=== PATIENT | female | born 1970 | race Caucasian/White ===

== ENCOUNTER 2016-08-30 16:21 | Emergency (ER) | payer OTHER ==
[~2016-08-30] VITALS: Ht 157.5 cm; Wt 77.4 kg
[~2016-08-30 16:21] MED LIST: CIPR-255 PO; DOCU-94 PO; ERGO1CAP35 PO; MCRB100HP PO; MTR/600 PO; OXYC-643 PO; TRIA1SPR2 NAE
[2016-08-30 16:23] VITALS: TEMP 36.6; Ht 157.5 cm; Wt 77.4 kg
[2016-08-30] MEDS ORDERED: ONDANSETRON INJ 2 MG/ML 2 ML VIAL IV STA (17:28)
[2016-08-30] MEDS ORDERED: SODIUM CHLORIDE 0.9% 1000ML 1,000 ML IV STA (17:28)
--- NOTE | 2016-08-30 17:31 | EMERGENCY ROOM VISIT NOTE ---
History Report prepared by Reid: Chloé Way Under the Supervision of: Dr. Tae Astudillo D.O. 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 The patient rates the pain as a 4/10 in severity. The patient states that she has been experiencing chills, fatigue, dizziness, lightheadedness and constant ear pain associated with her symptoms. The patient states that she has not had any fevers, sore throat, chest pain, nausea or vomiting. The patient states that Advil has decreased her pain. She states she has history of tubes in her ears along with ear infections. 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 Review of Systems See HPI for pertinent positives & negatives. A total of 10 systems reviewed and were otherwise negative. Past Medical & Surgical Medical Problems: (1) CHOLELITHIASIS NOS (2) Cough (3) Headache (4) Pneumonia (5) Right flank pain (6) Right flank pain Surgical Problems: (1) S/P cholecystectomy Family History Cancer Diabetes mellitus Gallbladder disease Heart disease Hypertension Kidney disease Lung disease Social History Smoking Status: Never Smoker Alcohol Use: none Drug Use: none Marital Status: Housing Status: lives with family Occupation Status: employed Current/Historical Medications Scheduled Amoxicillin & Pot Clavulanate (Augmentin 875-125 mg), 875 MG PO BID Ergocalciferol (Vitamin D Cap), 50,000 INTER.UNIT PO WK Scheduled PRN Ibuprofen (Ibuprofen), 600 MG PO Q6 PRN for Pain Triamcinolone Acetonide (Nasal (Nasacort-Aq Nasal Inh), 2 SPRAYS SHADI DAILY PRN for allergy symptoms Allergies Coded Allergies: Sulfamethoxazole w/Trimethoprim (Verified Allergy, Mild, UNKNOWN REACTION , 08/30/16) Meperidine (Verified Adverse Reaction, Mild, VOMITING, 08/30/16) Physical Exam Vital Signs Date Time Temp Pulse Resp B/P Pulse Ox O2 Delivery O2 Flow Rate FiO2 08/30/16 19:41 86 18 120/82 95 08/30/16 18:32 80 18 114/80 99 Room Air 08/30/16 16:23 36.6 97 18 137/86 99 Room Air Physical Exam GENERAL: Patient is awake, alert, and in no acute distress. Patient is resting comfortably and showing no signs of anxiety EYES: The conjunctivae are clear. The pupils are round and reactive. EARS, NOSE, MOUTH AND THROAT: The nose is without any evidence of any deformity. Mucous membranes are moist tongue is midline. Left TM clear, Right TM was pearly in appearance, there was a myringotomy tube located at 3 o'clock with no drainage. No swelling or erythema noted in the outer ear canal. There was tenderness with movement of the outer ear. There was mild tenderness over the right mastoid but no erythema or swelling. NECK: No midline tenderness, no meningismus, and ROM appeared to be intact. Some tenderness over the right perivertebral musculature in the cerebral spine. RESPIRATORY: Normal respiratory effort is noted there is no evidence of wheezing rhonchi or rales CARDIOVASCULAR: Regular rate and rhythm noted there no murmurs rubs or gallops normal S1 normal S2 GASTROINTESTINAL: The abdomen is soft. Bowel sounds are present in all quadrants. Abdomen is nontender MUSCULOSKELETAL/EXTREMITIES: There is no evidence of gross deformity full range of motion is noted in the hips and shoulders SKIN: There is no obvious evidence of any rash. There are no petechiae, pallor or cyanosis noted. NEUROLOGIC: Patient is awake alert and oriented x3 strength is symmetric patellar reflexes are 2+ bilaterally Medical Decision & Procedures ER Provider Diagnostic Interpretation: X-ray results as stated below per interpretation by me and the radiologist. CHEST ONE VIEW PORTABLE CLINICAL HISTORY: Neck pain. Syncope. COMPARISON STUDY: Chest radiograph and chest CT April 19, 2015. FINDINGS: Lung volumes are normal. Lungs are clear. There is no pneumothorax or pleural effusion. Cardiac size is normal. Mediastinal contours are normal. There is no evidence of pulmonary edema. IMPRESSION: No acute cardiopulmonary findings. Electronically signed by: Jone Salazar M.D. 08/30/2016 6:24 PM Dictated Date/Time: 08/30/2016 6:[address] results as stated below per my review and radiologist interpretation. CT OF THE HEAD WITHOUT CONTRAST CLINICAL HISTORY: Head and neck pain, right mastoid infection history COMPARISON STUDY: MRI of the brain November 07, 2014. CT DOSE: 893.07 mGy.cm TECHNIQUE: Helical axial images of the head were obtained without IV contrast. Automated exposure control was utilized for the study. FINDINGS: No acute intracranial hemorrhage, midline shift or mass effect is present. Ventricular system is normal. The basilar cisterns are patent. There are no extra-axial collections. Dixon-white differentiation is maintained. There are no findings to suggest acute dural sinus thrombosis or acute territorial infarct. There is no calvarial fracture. There are postsurgical findings within the sinuses. Visualized portions of the sinuses are clear. There is no fluid within the middle ears. IMPRESSION: No acute intracranial findings. Electronically signed by: Jone Salazar M.D. 08/30/2016 6:53 PM Dictated Date/Time: 08/30/2016 6:[address] OF THE CERVICAL SPINE WITHOUT CONTRAST CLINICAL HISTORY: Head and neck pain. COMPARISON STUDY: No previous studies for comparison. TECHNIQUE: Helical axial images of the cervical spine were obtained without IV contrast. Sagittal and coronal reconstructions were viewed. FINDINGS: There is slight reversal of the normal cervical lordosis. No fracture or suspicious lesion is identified within the cervical spine. There is no prevertebral edema. Craniocervical junction is intact. The central canal and neural foramen are suboptimally assessed by CT technique. There is mild disc space narrowing and osteophytosis at C4-C5 and C5-C6. Visualized portions the lung apices are clear. IMPRESSION: 1. No acute cervical spine fracture or subluxation. 2. Mild to moderate degenerative disc disease at C4-C5 and C5-C6. Electronically signed by: Jone Salazar M.D. 08/30/2016 6:56 PM Dictated Date/Time: 08/30/2016 6:53 PM Laboratory Results 08/30/16 17:40 Red Blood Count 4.79, Mean Corpuscular Volume 86.8, Mean Corpuscular Hemoglobin 29.6, Mean Corpuscular Hemoglobin Concent 34.1, Mean Platelet Volume 9.2, Neutrophils (%) (Auto) 73.9, Lymphocytes (%) (Auto) 15.1, Monocytes (%) (Auto) 9.7, Eosinophils (%) (Auto) 0.7, Basophils (%) (Auto) 0.4, Neutrophils # (Auto) 8.00, Lymphocytes # (Auto) 1.63, Monocytes # (Auto) 1.05, Eosinophils # (Auto) 0.08, Basophils # (Auto) 0.04 08/30/16 17:40 Test 08/30/16 17:40 White Blood Count 10.82 K/uL (4.8-10.8) Red Blood Count 4.79 M/uL (4.2-5.4) Hemoglobin 14.2 g/dL (12.0-16.0) Hematocrit 41.6 % (37-47) Mean Corpuscular Volume 86.8 fL (80-100) Mean Corpuscular Hemoglobin 29.6 pg (25-34) Mean Corpuscular Hemoglobin Concent 34.1 g/dl (32-36) Platelet Count 278 K/uL (130-400) Mean Platelet Volume 9.2 fL (7.4-10.4) Neutrophils (%) (Auto) 73.9 % Lymphocytes (%) (Auto) 15.1 % Monocytes (%) (Auto) 9.7 % Eosinophils (%) (Auto) 0.7 % Basophils (%) (Auto) 0.4 % Neutrophils # (Auto) 8.00 K/uL (1.4-6.5) Lymphocytes # (Auto) 1.63 K/uL (1.2-3.4) Monocytes # (Auto) 1.05 K/uL (0.11-0.59) Eosinophils # (Auto) 0.08 K/uL (0-0.5) Basophils # (Auto) 0.04 K/uL (0-0.2) RDW Standard Deviation 41.0 fL (36.4-46.3) RDW Coefficient of Variation 13.0 % (11.5-14.5) Immature Granulocyte % (Auto) 0.2 % Immature Granulocyte # (Auto) 0.02 K/uL (0.00-0.02) Anion Gap 8.0 mmol/L (3-11) Est Creatinine Clear Calc Drug Dose 103.7 ml/min Estimated GFR () 123.6 Estimated GFR (Non- 106.7 BUN/Creatinine Ratio 14.4 (10-20) Calcium Level 8.8 mg/dl (8.5-10.1) Total Bilirubin 0.4 mg/dl (0.2-1) Direct Bilirubin 0.1 mg/dl (0-0.2) Aspartate Amino Transf (AST/SGOT) 21 U/L (15-37) Alanine Aminotransferase (ALT/SGPT) 33 U/L (12-78) Alkaline Phosphatase 74 U/L (45-117) Total Protein 7.5 gm/dl (6.4-8.2) Albumin 3.7 gm/dl (3.4-5.0) Lipase 121 U/L (73-393) Human Chorionic Gonadotropin, Qual NEG (NEG) Laboratory results per my review. Medications Administered Medications (Trade) Dose Ordered Sig/Tristian Route Start Time Stop Time Status Last Admin Dose Admin Sodium Chloride (Nss 1000ml) 1,000 ml @ 999 mls/hr Q1H1M STAT IV 08/30/16 17:28 08/30/16 18:28 DC 08/30/16 17:40 999 MLS/HR Amoxicillin/ Clavulanate Potassium (Augmentin Tab) 875 mg NOW ONCE PO 08/30/16 19:30 08/30/16 19:31 DC 08/30/16 19:36 875 MG Amoxicillin/ Clavulanate Potassium (Augmentin 875MG Home Pack) 1 homepack UD ONCE PO 08/30/16 19:30 08/30/16 19:31 DC 08/30/16 19:36 1 HOMEPACK ED Course 1722: The patient was evaluated in room B10. A complete history and physical examination were performed. 1728: Ordered Zofran Inj 4 mg IV, NSS 1,000 ml @ 999 mls/hr IV 5: Upon reevaluation, the patient is resting comfortably. I discussed the results and treatment plan with her. She verbalized agreement of the treatment plan. The patient was discharged home. 1929: Ordered Amoxicillin/ Clavulanate Potassium 1 homepack PO, Amoxicillin/ Clavulanate Potassium 875 mg PO. Medical Decision Differential diagnosis: Etiologies such as migraine headache, meningitis, sinusitis, CO exposure, ICH, SAH, infection, tumor, headache, sinus thrombosis, arterial dissection, as well as others were entertained. Nursing notes reviewed. The patient is a 46-year-old female who presented to the emergency department for an evaluation of right sided neck pain and right-sided headache. The patient had pain around her right ear. She has a history of mastoiditis and has a myringotomy tube in the right ear. The patient did not have significant tenderness over the mastoid or swelling. She had no meningismus or fever. The patient was initially seen at the [facility] and sent to the emergency department for further evaluation. I discussed the patient's radiographic studies with her. She was treated with IV fluids and started on oral antibiotics in the emergency department. She did not want to have any pain medication at this time. She was encouraged to rest and continue all medications as prescribed. She was also encouraged to continue using Motrin and Tylenol for pain and follow-up with her primary care physician for possible further ENT referral within the next couple days. She was also encouraged return to the emergency department immediately if symptoms change worsen or the need arises. Impression Primary Impression: Headache Additional Impressions: Neck pain, Otitis media Scribe Attestation The scribe's documentation has been prepared under my direction and personally reviewed by me in its entirety. I confirm that the note above accurately reflects all work, treatment, procedures, and medical decision making performed by me. Departure Information Dispostion Home / Self-Care Prescriptions Amoxicillin & Pot Clavulanate (Augmentin 875-125 mg) 1 Tab Tab 875 MG PO BID for 7 Days, #14 TAB Prov: Tae Astudillo DO 08/30/16 Referrals Brendan Traylor DO (PCP) Forms HOME CARE DOCUMENTATION FORM, IMPORTANT VISIT INFORMATION, WORK / SCHOOL INSTRUCTIONS Patient Instructions A Signature Page, My [facility]
[2016-08-30 17:47] LABS: BASO % 0.4 %; BASO ABS # 0.04 K/uL (0-0.2); COMPLETE YES; EOS % 0.7 %; HEMATOCRIT 41.6 % (37-47); IG% 0.2 %; LYMPH % 15.1 %; LYMPH ABS # 1.63 K/uL (1.2-3.4); MEAN CELL VOLUME 86.8 fL (80-100); MEAN CORPUSCULAR HEMOGLOBIN 29.6 pg (25-34); MEAN CORPUSCULAR HGB CONC 34.1 g/dl (32-36); MEAN PLATELET VOLUME 9.2 fL (7.4-10.4); MONO % 9.7 %; NEUT % 73.9 %; PLATELET COUNT 278 K/uL (130-400); RED BLOOD COUNT 4.79 M/uL (4.2-5.4); WHITE BLOOD COUNT 10.82 K/uL (4.8-10.8)
[2016-08-30 18:07] LABS: BUN/CREATININE RATIO 14.4 (10-20); CALCIUM 8.8 mg/dl (8.5-10.1); CREATININE 0.66 mg/dl (0.60-1.20); POTASSIUM 3.8 mmol/L (3.5-5.1)
[2016-08-30 18:23] LABS: PREG INTERNAL NEGATIVE QC NEG CLEAR BACKGROUND; PREG INTERNAL POSITIVE QC POS CONTROL LINE
--- NOTE | 2016-08-30 18:26 | DIAGNOSTIC IMAGING REPORT ---
CHEST ONE VIEW PORTABLE CLINICAL HISTORY: Neck pain. Syncope. COMPARISON STUDY: Chest radiograph and chest CT April 19, 2015. FINDINGS: Lung volumes are normal. Lungs are clear. There is no pneumothorax or pleural effusion. Cardiac size is normal. Mediastinal contours are normal. There is no evidence of pulmonary edema. IMPRESSION: No acute cardiopulmonary findings. Electronically signed by: Jone Salazar M.D. 08/30/2016 6:24 PM Dictated Date/Time: 08/30/2016 6:24 PM
--- NOTE | 2016-08-30 18:55 | DIAGNOSTIC IMAGING REPORT ---
CT OF THE HEAD WITHOUT CONTRAST CLINICAL HISTORY: Head and neck pain, right mastoid infection history COMPARISON STUDY: MRI of the brain November 07, 2014. CT DOSE: 893.07 mGy.cm TECHNIQUE: Helical axial images of the head were obtained without IV contrast. Automated exposure control was utilized for the study. FINDINGS: No acute intracranial hemorrhage, midline shift or mass effect is present. Ventricular system is normal. The basilar cisterns are patent. There are no extra-axial collections. Dixon-white differentiation is maintained. There are no findings to suggest acute dural sinus thrombosis or acute territorial infarct. There is no calvarial fracture. There are postsurgical findings within the sinuses. Visualized portions of the sinuses are clear. There is no fluid within the middle ears. IMPRESSION: No acute intracranial findings. Electronically signed by: Jone Salazar M.D. 08/30/2016 6:53 PM Dictated Date/Time: 08/30/2016 6:50 PM
--- NOTE | 2016-08-30 18:57 | DIAGNOSTIC IMAGING REPORT ---
CT OF THE CERVICAL SPINE WITHOUT CONTRAST CLINICAL HISTORY: Head and neck pain. COMPARISON STUDY: No previous studies for comparison. TECHNIQUE: Helical axial images of the cervical spine were obtained without IV contrast. Sagittal and coronal reconstructions were viewed. FINDINGS: There is slight reversal of the normal cervical lordosis. No fracture or suspicious lesion is identified within the cervical spine. There is no prevertebral edema. Craniocervical junction is intact. The central canal and neural foramen are suboptimally assessed by CT technique. There is mild disc space narrowing and osteophytosis at C4-C5 and C5-C6. Visualized portions the lung apices are clear. IMPRESSION: 1. No acute cervical spine fracture or subluxation. 2. Mild to moderate degenerative disc disease at C4-C5 and C5-C6. Electronically signed by: Jone Salazar M.D. 08/30/2016 6:56 PM Dictated Date/Time: 08/30/2016 6:53 PM
[2016-08-30] MEDS ORDERED: AMOX875T PO (19:21)
[2016-08-30] MEDS ORDERED: AMOXICIL/CLAVU 875MG HOME PACK PO ONE (19:30)
[2016-08-30] MEDS ORDERED: AMOXICILLIN/CLAVULANATE TAB 875 MG TAB PO ONE (19:30)
[2016-08-30 19:41] VITALS: BP 120/82; PULSE 86; O2SAT 95
== END 2016-08-30 19:42 | disposition home or self-care (01) ==
LOC: C.EDB 16:23
DX: R51 Headache (principal); M54.2 Cervicalgia; H66.91 Otitis media, unspecified, right ear; K80.20 Calculus of gallbladder without cholecystitis without obstruction; Z80.9 Family history of malignant neoplasm, unspecified; Z83.3 Family history of diabetes mellitus; Z83.79 Family history of other diseases of the digestive system; Z82.49 Family history of ischemic heart disease and other diseases of the circulatory system; Z84.1 Family history of disorders of kidney and ureter; Z83.6 Family history of other diseases of the respiratory system

== ENCOUNTER → 2016-10-29 | Outpatient (CLI) | payer OTHER ==
[~2016-10-29] MED LIST changes: -CIPR-255 PO; -DOCU-94 PO; -MCRB100HP PO; -OXYC-643 PO
--- NOTE | 2016-10-29 15:37 | MAMMOGRAPHY REPORT ---
BILATERAL DIGITAL SCREENING MAMMOGRAM TOMOSYNTHESIS WITH CAD: 10/29/2016 TECHNIQUE: Breast tomosynthesis in addition to standard 2D mammography was performed. Current study was also evaluated with a Computer Aided Detection (CAD) system. COMPARISON: Comparison is made to exams dated: 08/29/2015 mammogram, 08/11/2013 mammogram, 08/15/2014 mammogram, and 05/01/2011 mammogram - [facility]. BREAST COMPOSITION: There are scattered areas of fibroglandular density in both breasts. FINDINGS: No suspicious masses, calcifications, or areas of architectural distortion are noted in e ither breast. There has been no significant interval change compared to prior exams. IMPRESSION: ACR BI-RADS CATEGORY 1: NEGATIVE There is no mammographic evidence of malignancy. A 1 year screening mammogram is recommended. The p atient will receive written notification of the results. Approximately 10% of breast cancers are not detected with mammography. A negative mammographic repor t should not delay biopsy if a clinically suggestive mass is present. Misty Trujillo M.D. ah/:10/29/2016 13:32:38 Forming Machine Upkeep Mechanic: Cesilia ALVARENGA(Pooja)(M), [facility] letter sent: Normal 1/2 BI-RADS Code: ACR BI-RADS Category 1: Negative
== END | disposition home or self-care (01) ==
LOC: C.MAMM 09:33
PROVIDERS: ATTEND Family Medicine
DX: Z12.31 Encounter for screening mammogram for malignant neoplasm of breast (principal)

== ENCOUNTER → 2016-11-12 | Outpatient (CLI) | payer OTHER ==
[2016-11-12 12:48] LABS: ALT/SGPT 30 U/L (12-78); AST/SGOT 17 U/L (15-37); BLOOD UREA NITROGEN 8 mg/dl (7-18); BUN/CREATININE RATIO 12.8 (10-20); CALCIUM 8.5 mg/dl (8.5-10.1); CARBON DIOXIDE 29 mmol/L (21-32); CHLORIDE 105 mmol/L (98-107); CREATININE 0.64 mg/dl (0.60-1.20); GLUCOSE 72 mg/dl (70-99); SODIUM 140 mmol/L (136-145)
[2016-11-12 12:57] LABS: ALB/GLOB RATIO 0.9 (0.9-2); ALKALINE PHOSPHATASE 65 U/L (45-117); CHOLESTEROL 179 mg/dl (0-200); CHOLESTEROL/HDL RATIO 2.2; HDL CHOLESTEROL 81 mg/dl; LDL CHOLESTEROL CALCULATED 82 mg/dl; RHEUMATOID FACTOR 13.6 U/mL (0-15); TOTAL IRON BINDING CAPACITY 352 mcg/dl (250-450); TRIGLYCERIDES 79 mg/dl (0-150); VERY LOW DENSITY LIPOPROT CALC 16 mg/dl
[2016-11-17 04:33] LABS: ANTI-CENTROMERE AB <1.0 NEG AI (<1.0 NEG); ANTI-SS-A <1.0 NEG AI (<1.0 NEG); ANTI-SS-B <1.0 NEG AI (<1.0 NEG); CYCLIC CITRULLINATED PEPT IGG <16 UNITS (<20); DNA ds CRITHIDIA NEGATIVE (NEGATIVE); Sm Antibody <1.0 NEG AI (<1.0 NEG)
== END | disposition home or self-care (01) ==
LOC: C.LABBFT 09:19
PROVIDERS: ATTEND Nurse Practitioner
DX: Q79.6 Ehlers-Danlos syndromes (principal); R76.8 Other specified abnormal immunological findings in serum; R20.0 Anesthesia of skin; M25.529 Pain in unspecified elbow; E55.9 Vitamin D deficiency, unspecified; E78.5 Hyperlipidemia, unspecified; E04.1 Nontoxic single thyroid nodule

== ENCOUNTER → 2016-11-15 | Outpatient (CLI) | payer OTHER ==
--- NOTE | 2016-11-15 12:38 | DIAGNOSTIC IMAGING REPORT ---
RIGHT LOWER EXTREMITY VENOUS DOPPLER CLINICAL HISTORY: Right leg pain COMPARISON STUDY: Right lower extremity venous Doppler April 03, 2015. TECHNIQUE: Sonography of the deep venous system of the right lower extremity was performed. Compression and augmentation were evaluated. FINDINGS: The right common femoral, superficial femoral and popliteal veins were compressible. Augmentation was normal. Flow was shown within the deep calf vessels. IMPRESSION: No evidence of deep venous thrombus within the right lower extremity. Electronically signed by: Jone Salazar M.D. 11/15/2016 12:37 PM Dictated Date/Time: 11/15/2016 12:36 PM
== END | disposition home or self-care (01) ==
LOC: C.ULTR 11:59
PROVIDERS: ATTEND Family Medicine
DX: M79.604 Pain in right leg (principal)

== ENCOUNTER → 2016-11-23 | Outpatient (CLI) | payer OTHER ==
--- NOTE | 2016-11-23 09:00 | DIAGNOSTIC IMAGING REPORT ---
THYROID ULTRASOUND HISTORY: Multinodular thyroid E04.1 Thyroid nodule Please compare to study from 07/2015 to re-e COMPARISON: 08/21/2015 FINDINGS: Right lobe: Maximum dimension 4.5 cm. Several very small sub-3 mm nodules are present on the right. Left lobe: Maximum dimension 4.7 cm. Interval decrease in size of a complex nodule lower pole left thyroid. Current dimensions are 8 mm x 8 mm x 7 mm. This is diminished from the prior study. Isthmus: No nodules. IMPRESSION: Improved exam. The dominant nodule lower aspect left thyroid has a current maximum dimension of 8 mm. This is improved from the prior measurement of 12 mm. All remaining components of the study are unchanged. Electronically signed by: Dmitri Gee M.D. 11/23/2016 8:59 AM Dictated Date/Time: 11/23/2016 8:54 AM
== END | disposition home or self-care (01) ==
LOC: C.ULTR 08:24
PROVIDERS: ATTEND Nurse Practitioner
DX: E04.1 Nontoxic single thyroid nodule (principal)

== ENCOUNTER → 2017-05-21 | Outpatient (CLI) | payer OTHER ==
--- NOTE | 2017-05-21 10:07 | DIAGNOSTIC IMAGING REPORT ---
VENOUS DOPP LOWER EXT UNILAT CLINICAL HISTORY: 47 years-old Female presenting with M79.604 Leg pain, medial, [id number]. TECHNIQUE: Real-time grayscale and color and spectral Doppler ultrasound imaging of the veins of the right lower extremity was performed. Compression and augmentation were also utilized. COMPARISON: 11/15/2016. FINDINGS: Right: Common femoral vein: Patent. Femoral vein: Patent. Greater saphenous vein: Patent. Popliteal vein: Patent. Calf veins: Patent. Other: Irregularity ill-defined hyperechogenic focus in the subcutaneous fat of the right medial thigh at an area of ecchymosis. This measures 2.2 x 1.6 x 4.9 cm. No hyperemia. IMPRESSION: 1. No evidence of deep venous thrombosis. 2. Subcutaneous contusion in the medial right thigh. Electronically signed by: Sylvester العلي M.D. 05/21/2017 10:06 AM Dictated Date/Time: 05/21/2017 10:04 AM
== END | disposition home or self-care (01) ==
LOC: C.ULTR 09:32
PROVIDERS: ATTEND Physician Assistant Medical
DX: S70.11XA Contusion of right thigh, initial encounter (principal); X58.XXXA Exposure to other specified factors, initial encounter

== ENCOUNTER → 2017-09-21 | Outpatient (CLI) | payer OTHER ==
[2017-09-21 12:26] LABS: BASO % 0.4 %; BASO ABS # 0.03 K/uL (0-0.2); EOS % 0.5 %; EOS ABS # 0.04 K/uL (0-0.5); HEMATOCRIT 40.4 % (37-47); HEMOGLOBIN 13.6 g/dL (12.0-16.0); IG# 0.02 K/uL (0.00-0.02); LYMPH % 21.4 %; LYMPH ABS # 1.63 K/uL (1.2-3.4); MEAN CELL VOLUME 90.2 fL (80-100); MEAN CORPUSCULAR HEMOGLOBIN 30.4 pg (25-34); MEAN CORPUSCULAR HGB CONC 33.7 g/dl (32-36); MONO % 6.8 %; MONO ABS # 0.52 K/uL (0.11-0.59); NEUT % 70.6 %; NEUT ABS # 5.39 K/uL (1.4-6.5); PLATELET COUNT 260 K/uL (130-400); RED CELL DISTRIBUTION WIDTH CV 12.9 % (11.5-14.5); RED CELL DISTRIBUTION WIDTH SD 41.6 fL (36.4-46.3); WHITE BLOOD COUNT 7.63 K/uL (4.8-10.8)
[2017-09-21 12:30] LABS: ALBUMIN 3.5 gm/dl (3.4-5.0); ALT/SGPT 18 U/L (12-78); AST/SGOT 14 U/L (15-37); BLOOD UREA NITROGEN 7 mg/dl (7-18); CALCIUM 8.6 mg/dl (8.5-10.1); CARBON DIOXIDE 28 mmol/L (21-32); CREATININE 0.59 mg/dl (0.60-1.20); GLUCOSE 82 mg/dl (70-99); POTASSIUM 4.1 mmol/L (3.5-5.1); SODIUM 137 mmol/L (136-145)
[2017-09-21 12:39] LABS: ALKALINE PHOSPHATASE 67 U/L (45-117); TOTAL PROTEIN 7.1 gm/dl (6.4-8.2); TRANSFERRIN 241 mg/dl (200-360)
== END | disposition home or self-care (01) ==
LOC: C.LABBFT 08:28
PROVIDERS: ATTEND Nurse Practitioner
DX: M25.559 Pain in unspecified hip (principal); R53.83 Other fatigue; R06.02 Shortness of breath; E55.9 Vitamin D deficiency, unspecified

== ENCOUNTER → 2017-11-01 | Outpatient (CLI) | payer OTHER ==
--- NOTE | 2017-11-02 15:14 | MAMMOGRAPHY REPORT ---
BILATERAL DIGITAL SCREENING MAMMOGRAM TOMOSYNTHESIS WITH CAD: 11/01/2017 CLINICAL HISTORY: Routine screening. Patient has no complaints. TECHNIQUE: Breast tomosynthesis in addition to standard 2D mammography was performed. Current study was also evaluated with a Computer Aided Detection (CAD) system. COMPARISON: Comparison is made to exams dated: 10/29/2016 mammogram, 08/29/2015 mammogram, 08/15/2014 ma mmogram, 08/11/2013 mammogram, 08/02/2012 mammogram, and 05/01/2011 mammogram - [facility]. BREAST COMPOSITION: There are scattered areas of fibroglandular density in both breasts. FINDINGS: The parenchymal pattern is unchanged. No developing mass, architectural distortion or clus ter of suspicious microcalcifications is seen in either breast. IMPRESSION: ACR BI-RADS CATEGORY 2: BENIGN There is no mammographic evidence of malignancy. A 1 year screening mammogram is recommended. The pa tient will receive written notification of the results. Approximately 10% of breast cancers are not detected with mammography. A negative mammographic report should not delay biopsy if a clinically suggestive mass is present. Tena Zelaya M.D. ay/:11/01/2017 16:42:30 Loft Worker: Cesilia ALVARENGA(Pooja)(M), [facility] letter sent: Normal 1/2 BI-RADS Code: ACR BI-RADS Category 2: Benign
== END | disposition home or self-care (01) ==
LOC: C.MAMM 13:55
PROVIDERS: ATTEND Internal Medicine
DX: Z12.31 Encounter for screening mammogram for malignant neoplasm of breast (principal)

== ENCOUNTER → 2018-01-06 | Outpatient (CLI) | payer OTHER ==
--- NOTE | 2018-01-06 16:33 | DIAGNOSTIC IMAGING REPORT ---
MRI OF THE CERVICAL SPINE WITHOUT IV CONTRAST CLINICAL HISTORY: Cervicalgia. Right upper extremity pain and numbness. COMPARISON STUDY: CT scan of cervical spine dated 08/30/2016. TECHNIQUE: MRI of the cervical spine is performed utilizing various T1 and T2 weighted sequences in the axial and sagittal planes. IV contrast was not administered for this examination. FINDINGS: Cervical spine: Vertebral body height and alignment are maintained throughout the cervical spine. There is straightening of the cervical lordosis. The atlantodental articulation appears maintained. The spinous processes are intact. Tiny anterior osteophytes are seen in the lower cervical region. No marrow edema or destructive bony process is identified. Intervertebral discs: There is degenerative disc desiccation seen throughout the cervical spine. Mild loss of height is noted at C5-C6. Paraspinal cord: The cervical spinal cord is normal in morphology and signal intensity. C2-C3: There is minimal posterior disc bulge. Mild facet arthropathy is of no consequence. The central canal and neural foramina are widely patent. C3-C4: There is minimal posterior disc bulge. Mild facet arthropathy is of no consequence. The central canal and neural foramina are widely patent. C4-C5: A posterior disc bulge eccentric to the right effaces the ventral subarachnoid space. In conjunction with facet arthropathy there is moderate right-sided neural foraminal stenosis. There is mild left-sided neural foraminal stenosis. C5-C6: A posterior disc bulge abuts the ventral cord. In conjunction with uncovertebral and facet arthropathy this causes severe right-sided neural foraminal stenosis. There is only minimal left-sided neural foraminal stenosis. C6-C7: A small posterior disc bulge effaces the ventral subarachnoid space. The neural foramina are widely patent. C7-T1: Unremarkable. Soft tissues: The prevertebral and paraspinous soft tissues are normal as imaged. Brain parenchyma: Partially visualized brain parenchyma at the skull base is normal in appearance. IMPRESSION: 1. Multilevel cervical spondylosis as above, greatest at C5-C6 and C6-C7. See discussion for detailed level by level analysis. 2. The Cervical spinal cord is normal in morphology and signal intensity. 3. No destructive bony process is identified. Dictated: 01/06/2018 4:02 PM Transcribed: 01/06/2018 4:33 PM [facility] Electronically signed by: Rommel Cook M.D. 01/06/2018 4:39 PM Dictated Date/Time: 01/06/2018 4:02 PM
== END | disposition home or self-care (01) ==
LOC: C.MRIBC 15:07
PROVIDERS: ATTEND Orthopaedic Surgery
DX: M47.892 Other spondylosis, cervical region (principal); M79.601 Pain in right arm; M79.602 Pain in left arm